=== PATIENT | male | born 1985 | race Caucasian/White ===

== ENCOUNTER → 2024-02-26 | Outpatient (BNVA) | payer MEDICAID, SELFPAY | END | disposition home or self-care (01) | PROVIDERS: PCP Registered Nurse Community Health; Referring Provider Registered Nurse Community Health; Visit Provider Urology | DX: Z30.2 Encounter for sterilization (principal); N40.0 Benign prostatic hyperplasia without lower urinary tract symptoms; E78.00 Pure hypercholesterolemia, unspecified | CPT/HCPCS: 81003; 99212; G0463 ==

== ENCOUNTER 2024-10-23 16:59 | Emergency (ER) | payer MEDICAID, SELFPAY ==
[2024-10-23 17:07] VITALS: BP 141/88; PULSE 82; RESP 18; TEMP 37.2; O2SAT 99; BMI 26.9
--- NOTE | 2024-10-23 17:11 | XR_ITS ---
Examination: CT abdomen with intravenous contrast CT pelvis with intravenous contrast 2-D coronal reconstructions 2-D sagittal reconstructions Date and time of exam:October 23, 2024 1903 hours INDICATIONS: Onset diffuse abdominal pain beginning today. CTDI: vol (mGy) 13.5 DLP: (mGycm) 630 Technique: Multiple axial sections of the abdomen and pelvis have been obtained. 64 slice high-resolution scanner used. 3 mm axial sections have been obtained, post intravenous injection 60 cc [id number] 2-D sagittal, coronal reconstructions obtained. Low dose protocols were performed. One or more of the following dose reduction techniques were used; automated exposure control, adjustment of the mA and/or KV according to patient size, use of iterative reconstruction technique. Findings: No focal liver or splenic lesions No gallstones No pancreatic edema No renal or ureteral calculi, no hydronephrosis Aorta normal size. 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 No bowel obstruction or diverticulitis Mild small bowel ileus versus enteritis
--- NOTE | 2024-10-23 17:13 | PD.EDABDPN ---
ED Abdominal Pain RME/HPI General Chief Complaint: Abdominal Pain Stated complaint: MY STOMACH HURTS X 0900 Time seen by provider: 10/23/24 17:03 Arrival date/time: 10/23/24 16:59 RME / HPI RME / HPI narrative: 39-year-old male patient with significant history of morbid obesity, was started on Wegovy, 4 months ago, and he just increased the dose, patient woke up this morning with diffuse abdominal pain, more on the left upper quadrant, described as sharp pain, severity moderate. Patient also feels nauseous. Denies any fever. Denies any diarrhea vomiting constipation or other complaints. No medications taken prior to arrival. Related Data Home Medications ?Medication ?Instructions ?Recorded ?Confirmed atorvastatin 10 mg tablet 10 mg PO HS 09/11/23 02/26/24 finasteride 1 mg tablet 1 mg PO QDAY 02/26/24 02/26/24 minoxidil 2.5 mg tablet 2.5 mg PO BID 02/26/24 02/26/24 pyridoxine (vitamin B6) 100 mg 100 mg PO QDAY 02/26/24 02/26/24 tablet rifampin 300 mg capsule 300 mg PO QDAY 02/26/24 02/26/24 Previous Rx's ?Medication ?Instructions ?Recorded dicyclomine 20 mg tablet 20 mg PO QID PRN abdominal pain 10/23/24 #30 tabs ondansetron HCl 4 mg tablet 4 mg PO Q8H PRN nausea and 10/23/24 vomiting 5 days #30 tabs Allergies Allergy/AdvReac Type Severity Reaction Status Date / Time No Known Allergies Allergy Verified 10/23/24 17:02 Review of Systems Review of Systems Narrative Review of Systems: Review of system reviewed and within normal limits except mentioned in HPI ED Exam Narrative Physical exam: VITAL SIGNS: Reviewed. GENERAL APPEARANCE: Alert and interactive, follows commands, no acute distress, HEAD AND FACE: Non-traumatic. ENT: PERRL, pink conjunctivitis, eyelid no trauma, Mucous membrane moist. NECK: Supple, nontender, no nuchal rigidity. CHEST: No tenderness, no crepitus, no paradoxical movement, no retractions. LUNGS: Clear, well ventilated, symmetric, no rales, no wheezing, no ronchi, no stridor, good breath sounds bilaterally. HEART: Regular rate, regular rhythm, no murmur, no gallops. ABDOMEN: Soft, positive bowel sounds, nondistended, no guarding, diffuse abdominal tenderness, no rebound, no masses, RECTAL: Deferred. GENITAL: Deferred. NEUROLOGICAL: Gross motor function intact sensory function intact, Appropriate for age. MUSCULOSKELETAL: low back nontender, full range of motion. EXTREMITIES: Nontender, full range of motion. SKIN: Color pink, dry, no rash, no lacerations, no abrasions, no contusions. LYMPHATICS: Deferred. Course Quality Measures none Orders Category Date Time Status CT Screening NOW Care 10/23/24 17:11 Active Insert IV NOW Care 10/23/24 17:[address] abdomen pelvis w con Stat Exams 10/23/24 17:11 Completed CBC Stat Lab 10/23/24 17:19 Completed Comprehensive Metabolic Panel Stat Lab 10/23/24 17:19 Completed Lipase Stat Lab 10/23/24 17:19 Completed Lipid Panel Stat Lab 10/23/24 17:19 Completed Prothrombin Time with INR Stat Lab 10/23/24 17:19 Completed UA, C/S IF [Urinalysis, C/S if Indicated] Stat Lab 10/23/24 17:22 Completed Ketorolac Inj [Toradol Inj] Med 10/23/24 17:11 Discontinued 30 mg IVP X1 ONE Ondansetron Inj [Zofran Inj] Med 10/23/24 17:11 Discontinued 4 mg IVP X1 ONE Ringers Lactated 1000 ml [Lactated Ringers] 1,000 ml Med 10/23/24 18:30 Discontinued IV 999 mls/hr Vital Signs Vital signs: Vital Signs Temperature 98.9 F 10/23/24 17:07 Pulse Rate 82 10/23/24 17:07 Respiratory Rate 18 10/23/24 17:07 Blood Pressure 141/88 H 10/23/24 17:07 Pulse Oximetry (%) 99 10/23/24 17:07 Oxygen Delivery Method Room Air 10/23/24 17:07 Abdominal Pain MDM MDM Narrative MDM Narrative:: 39-year-old male patient with significant history of morbid obesity, was started on Wegovy, 4 months ago, and he just increased the dose, patient woke up this morning with diffuse abdominal pain, more on the left upper quadrant, described as sharp pain, severity moderate. Patient also feels nauseous. Denies any fever. Denies any diarrhea vomiting constipation or other complaints. No medications taken prior to arrival. Laboratory workup all came back unremarkable. Except for WBC count of 12.8 which could be reactive in nature due to vomiting lipase is normal urinalysis no UTI including CT scan of the abdomen and pelvis which also came back with no acute pathology. Patient received Toradol, IV fluids, and Zofran with complete resolution of symptoms. Patient data External records reviewed:: None Clinical information provided by:: patient Social determinants that could affect healthcare access:: none Patient has the following chronic illnesses:: None How is presenting disease/condition affected by chronic disease/condition?: no chronic disease Evaluation data The following diagnostics were reviewed and interpreted by me:: lab results and radiology exam(s) Lab and/or radiology exams considered but not ordered:: None Interpretation Summary: See results MDM Medications / Prescriptions Medications or Prescriptions considered but not ordered:: None Medication administrations:: Medication Administration History Discontinued Medications Lactated Ringer's (Lactated Ringers) 1,000 mls @ 999 mls/hr IV .Q1H1M ONE Stop: 10/23/24 19:30 Last Infusion: 10/23/24 20:00 Dose: Infused Documented By: Admin: 10/23/24 18:41 Dose: 999 mls/hr Documented By: JODI Ketorolac Tromethamine (Ketorolac Inj 30 Mg/Ml Vial) 30 mg IVP X1 ONE Stop: 10/23/24 17:12 Last Admin: 10/23/24 17:30 Dose: 30 mg Documented By: JUAN Ondansetron HCl (Ondansetron Inj 2 Mg/Ml Inj 2 Ml) 4 mg IVP X1 ONE; Protocol Stop: 10/23/24 17:12 Last Admin: 10/23/24 17:29 Dose: 4 mg Documented By: JUAN Toradol Zofran and IV fluids Consultations Consultation(s) initiated? (list below): No Diagnosis Differential diagnosis abdominal pain: abdominal pain, gastroenteritis and pancreatitis Most likely diagnosis given after review of the tests above:: Abdominal pain Admission Indicated Admission indicated?: not indicated Admission Request Was there a request for admission?: No Disposition Plan Disposition Plan: Discharge Discharge Attestation Discharge Attestation: The patient was given an opportunity to ask questions and understood the discharge instructions. Discharge instructions specifically effects, indications for sooner follow up or return to the emergency department, and the expected course of current diagnosis. Patient condition: Stable Discharge Plan Plan Patient Disposition: HOME (Self Care) Discharge Disposition comment: stable Prescriptions/Referrals Prescriptions/Med Rec: New ondansetron HCl 4 mg tablet 4 mg PO Q8H PRN (Reason: nausea and vomiting) 5 Days Qty: 30 0RF dicyclomine 20 mg tablet 20 mg PO QID PRN (Reason: abdominal pain) Qty: 30 0RF No Action rifampin 300 mg capsule 300 mg PO QDAY pyridoxine (vitamin B6) 100 mg tablet 100 mg PO QDAY minoxidil 2.5 mg tablet 2.5 mg PO BID finasteride 1 mg tablet 1 mg PO QDAY atorvastatin 10 mg tablet 10 mg PO HS Patient Comments: TOME 1 TABLETA POR LA BOCA EN LA NOCHE PARA COLESTEROL Referrals: No Primary/Family,Physician [Primary Care Provider] - In 1 week Problem List Clinical Impression: Abdominal pain Patient/Caregiver Discharge Instructions Discharge Activity: activity as tolerated Education Materials: Abdominal Pain Additional Instructions: Thank you for the opportunity for serving you today. You are stable for discharged . You are advised to: Follow-up with your PCP in 1 to 2 days Return to ED for worsening of symptoms Increase oral fluids Take medication as prescribed Print Language: Jamaican Stand Alone Forms: Naz Award Info., Patient Portal Info Letter [place]/FABBY Supervising Physician [place]/FABBY Supervising Physician: MD Jamil
[2024-10-23 17:29] LABS: Basophils # (Auto) 0.1 Thou/mm3 (0.0-0.2); Basophils % (Auto) 0 % (0-2.5); Eosinophils # (Auto) 0.1 Thou/mm3 (0.0-0.5); Eosinophils % (Auto) 1 % (0-10); Hematocrit 40.1 % (41.0-53.0); Hemoglobin 13.5 g/dL (13.5-16.0); Immature Granulocytes Auto 0.04 Thou/mm3 (0.00-0.00); Lymphocytes # (Auto) 3.0 Thou/mm3 (1.0-4.8); Lymphocytes % (Auto) 23 % (10-50); Mean Corpuscular HGB Conc 33.7 g/dl (31.0-37.0); Mean Corpuscular Hemoglobin 30.4 pg (25.0-35.0); Mean Corpuscular Volume 90 fL (80-100); Monocytes # (Auto) 0.7 Thou/mm3 (0.0-0.8); Monocytes % (Auto) 6 % (0-12); Neutrophils # (Auto) 9.0 Thou/mm3 (1.8-7.7); Neutrophils % (Auto) 70 % (37-80); Nucleated Red Blood Cell # 0.00 Thou/mm3 (0.00-0.00); Nucleated Red Blood Cell % 0 /100 WBC (0); Platelet Count 263 Thou/mm3 (140-440); RDW Standard Deviation 40.9 fL (35.1-43.9); Red Blood Count 4.44 Miln/mm3 (4.50-5.90); White Blood Count 12.8 Thou/mm3 (3.8-10.6)
[2024-10-23] MEDS: ONDANSETRON INJ 2 MG/ML INJ 2 ML 4 MG IVP (17:29)
[2024-10-23 17:30] VITALS: BP 113/76; PULSE 77; RESP 15; TEMP 36.8; O2SAT 99
[2024-10-23] MEDS: KETOROLAC INJ 30 MG/ML VIAL IVP (17:30)
[2024-10-23 17:47] LABS: Collection Type, Urine Clean Catch
[2024-10-23 17:47] LABS: Alanine Aminotransferase 16 U/L (10-49); Albumin, Serum 4.8 gm/dL (3.5-5.0); Albumin/Globulin Ratio 1.6 (1.2-2.2); Alkaline Phosphatase 73 U/L (46-116); Anion Gap 8 (7-16); Aspartate Amino Transferase 25 U/L (0-34); BUN/Creatinine Ratio 13 Ratio (12-20); Bilirubin,Total 1.0 mg/dL (0.3-1.2); Blood Urea Nitrogen 12 mg/dL (9-23); Calcium 9.5 mg/dL (8.3-10.6); Calcium (Corrected) 9.5 mg/dL (8.5-10.1); Carbon Dioxide 25.4 mMol/L (20.0-31.0); Cardiac Risk Estimate 2.8 RATIO (4.0-6.7); Chloride 106 mMol/L (98-107); Cholesterol 113 mg/dL (132-200); Creatinine (Component) 0.9 mg/dL (0.6-1.3); Estimated Creatinine Clearance 108.0 mL/min (>60); Globulin 3.0 gm/dL (2.3-3.5); Glucose 116 mg/dL (74-106); HDL Cholesterol 40 mg/dL (40-60); LDL Cholesterol,Calculated 59 mg/dL (0-130); Lipase 37 U/L (12-53); Osmolality,Calculated 278 (275-295); Potassium 3.6 mMol/L (3.4-5.1); Sodium 139 mMol/L (136-145); Total Protein 7.8 gm/dL (5.7-8.2); Triglycerides 68 mg/dL (30-150); eGFR > 60 See Note
[2024-10-23 17:48] LABS: INR 1.1 (0.9-1.3); Prothrombin Time 11.9 Seconds (9.0-12.2)
[2024-10-23 17:51] LABS: Bilirubin,Urine Negative (Negative); Blood,Urine Negative (Negative); Clarity,Urine Clear (Clear/Hazy); Color,Urine Yellow (Lt Yel-Yel); Culture Indicated,Urine Not Indicated; Glucose, Urine Negative (Negative); Ketones,Urine 2+ (Negative); Leukocyte Esterase,Urine Negative (Negative); Nitrite,Urine Negative (Negative); PH,Urine 5.5 (5.0-7.0); Protein,Urine Trace (Neg - Trace); RBC,Urine 4 /hpf (0-3); Specific Gravity,Urine 1.028 (1.001-1.035); Squamous Epithelial Cell,Urine < 1 /hpf (0-5); Urobilinogen,Urine Negative mg/dL (0.0-1.0); WBC,Urine 1 /hpf (0-5)
[2024-10-23] MEDS: RINGERS LACTATED 1000 ML 1,000 ML 999 ML IV (18:41)
[2024-10-23 20:00] VITALS: BP 109/71; O2SAT 94
[2024-10-23 21:00] VITALS: BP 125/68; PULSE 80; RESP 18; TEMP 36.6; O2SAT 94
== END 2024-10-23 21:23 | disposition home or self-care (01) ==
PROVIDERS: Nurse Practitioner Family; Emergency Provider Family Medicine
DX: R10.84 Generalized abdominal pain (principal); E66.01 Morbid (severe) obesity due to excess calories; Z68.26 Body mass index [BMI] 26.0-26.9, adult
CPT/HCPCS: 36415; 74177; 80053; 80061; 81001; 83690; 85025; 85610; 96361; 96374; 96375; 99283; A4649; J1885; J2405; J7120; Q9967